=== PATIENT | female | born 1955 | race Caucasian/White ===

== ENCOUNTER 2022-12-03 08:49 | Outpatient (CLI) | payer MEDICARE, OTHER ==
--- NOTE | 2022-12-03 09:46 | SLEEP CARE CONSULTATION ---
Information from patient questionnaire entered by Chasidy Patricia. I have reviewed and concur with the information entered by Chasidy Patricia. This document represents the service I personally performed and the decisions made by me, Abril Ortiz ARNP. History of Present Illness Service Date and Time: 12/03/2022 0849 Reason for Visit: New patient Chief Complaint: reports: Observed pauses in breathing, Frequent awakenings at night Date of Onset: 6YRS Usual bedtime: 830 Time it takes to fall asleep: OVER AN HR Snores at night: No Observed to quit breathing while asleep: Yes Number of times waking at night: 3 Reasons for waking at night: reports: Bathroom, Other (LET PUPS OUT ). denies: Choking, Gasping for air Toss, Turn, or Twitch while sleeping: Yes Recalls having dreams: No Usually gets out of bed at: 0500 Feels refreshed in the morning: No (about 1/2 the time) Morning headache: No Sleepy or fatigued during the day: Yes Ever fallen asleep while driving: No Takes day naps: No Dreams during day naps: No Prior sleep studies: No Additional HPI information: I had the pleasure of seeing EDDY GALLEGOS today regarding the possibility of her having a sleep disorder. Her current complaints are observed pauses in breathing and frequent night awakenings. She was vacationing and ended up going to ER. She noted that whenever she was falling asleep the oxygen pulse ox would alarm. She was wondering if this might be sleep apnea and had her PCP send her here for evaluation. She states she used to snore but since losing about 43 lbs she is not snoring any more. She has difficulty falling asleep due to unable to shut her mind off. - Parasomnia Symptoms Ever been unable to move upon waking from sleep: No Walks in sleep: No Talks in sleep: Yes Ever acted out dreams in sleep: No Ever felt weak in the knees when startled or emotional: No Bothered by creepy, crawly, restless sensations in legs: No Problems with memory or concentration: Yes (both, "not really that bad") Subjective Initial [place] Sleepiness Scale score: 4 (12/03/22) Past Medical History Past Medical History: reports: Hypertension, Arthritis, Other (POST NASAL DRIP) Social History The patient's occupation is a RE. Patient is and lives in [place]. Have you smoked in the past 12 months: No (SECOND HAND SMOKE when growing up) Alcohol use: Yes Alcohol amount and frequency: 2-3 GLASSES WINE PER YR Caffeine use: Yes Caffeine amount and frequency: 2 CUPS HOT TEA DAILY Family History Family history of sleep disordered breathing: No (UNKNOWN) Family Hx Sleep Apnea: Sibling: Snoring Allergies and Home Medications Known drug allergies: No Drug allergies reviewed: Yes (NKDA) Home medication list reviewed: Yes Allergy and home medication list: Medications: HCTZ 25 mg Atenolol 25 mg Aspirin 81 mg Atorvastatin 20 mg Unisom 25 mg Flonase, prn Vitamins Review of Systems Weight loss over past 5 years: 47 Cardiovascular: reports: high blood pressure Respiratory: reports: sputum production, chronic cough Gastrointestinal: reports: heartburn Urinary: reports: frequency Neurological: denies: headaches, head trauma Psychiatric: reports: claustrophobia. denies: anxiety, depression Ear/Nose/Throat: reports: nasal congestion, nose bleeds, dry mouth/throat. denies: tonsillectomy Endocrine: reports: increased urination. denies: thyroid disease Musculoskeletal: reports: joint pain Immunologic: reports: sneezing Physical Exam Vital signs obtained and entered by: CHASIDY Golden MA Blood Pressure: 152/78 (LEFT ARM) Cuff size: regular Heart Rate: 82 O2 Saturation: 97 Height: 5 ft 6 in Weight: 179 lb 6.4 oz Body Mass Index: 28.9 BMI Classification: Overweight Neck circumference: 16.5 Nostrils: patent to airflow Mouth and throat: narrow oropharynx Soft palate: long Hard palate: normal Uvula: normal Uvula visualization: 25% Mallampati Class III Tongue: enlarged in size with teeth law on lateral edges Tonsils: small Neck: normal w/o lymphadenopathy or thyromegaly Heart: regular rate and rhythm Lungs: clear bilaterally Impression and Plan 1. Suspected Obstructive Sleep Apnea-Hypopnea Syndrome, as suggested by a history of observed cessation of breath while asleep, frequent awakening during the night, unrefreshed sleep and cognitive impairment. Narrow oropharynx and obesity are common predisposing factors for obstructive sleep apnea-hypopnea syndrome. I recommend proceeding to polysomnography to confirm the diagnosis and to assess severity. If the patient has significant sleep disordered breathing, a manual CPAP titration study will also be performed to find the optimal treatment pressure. I informed the patient of what the sleep studies involve and after some discussion, obtained agreement to proceed. The pathophysiology of obstructive sleep apnea-hypopnea syndrome was discussed with the patient and health risks of cardiovascular and cerebrovascular disease if not treated. Risks of drowsy driving discussed in detail and patient advised to avoid long distance driving and to tap puller at the first sign of drowsiness. Patient agreed to plan. Patient was unsure she could sleep with the leads on her head for an in lab PSG because of her claustrophobia. I offered to write for 5 mg zolpidem to help her to sleep the night of the study. She states she wanted to think about it and will let me know. * Schedule polysomnography * Avoid long distance driving or driving when feeling sleepy. * Avoid alcohol, sedative and muscle relaxant around bedtime. * Continue to try to lose weight. * Review instructions provided by trained office staff on how to prepare for the sleep study. * Return for follow-up after sleep study completed. Counseling Topics: Weight loss health impact Visit Type: In Office Time Spent with Patient (minutes): 30 Provider Statement: I spent 100% of the Face to Face Visit with the patient with greater than 50% spent counseling the patient and coordination of care.
[2022-12-03 09:48] VITALS: BP 152/78
== END 2022-12-03 08:50 | disposition home or self-care (01) ==
LOC: SC 08:49
PROVIDERS: ATTEND Nurse Practitioner Family
DX: R06.81 Apnea, not elsewhere classified (principal); G47.8 Other sleep disorders; R41.89 Other symptoms and signs involving cognitive functions and awareness
CPT/HCPCS: 99203; G0463; 99212

== ENCOUNTER 2024-05-20 13:15 | Outpatient (CLI) | payer MEDICARE, OTHER ==
--- NOTE | 2024-05-20 16:11 | XRAY Report ---
PROCEDURE: Chest 2V INDICATIONS: COUGH TECHNIQUE: 2 views of the chest were acquired. COMPARISON: None. FINDINGS: Surgical changes and devices: Surgical clips are noted in bilateral axilla. Lungs and pleura: No pleural effusions or pneumothorax. Lungs are clear. Mediastinum: Mediastinal contours appear normal. Heart size is normal. Bones and chest wall: No suspicious bony lesions. Overlying soft tissues appear unremarkable. IMPRESSION: No acute cardiopulmonary process. Reviewed by: Yousuf Cline MD on 05/20/2024 4:09 PM PDT Approved by: Yousuf Cline MD on 05/20/2024 4:09 PM PDT Station ID: [id number]
== END 2024-05-20 13:30 | disposition home or self-care (01) ==
LOC: DI.N 13:15
PROVIDERS: ATTEND Family Medicine
DX: R05.9 Cough, unspecified (principal)